=== PATIENT | male | born 1960 | race American Indian/Alaskan Native ===

== ENCOUNTER 2023-02-08 07:30 | Inpatient (IN) ==
[2023-02-01 20:53] LABS: Blood Urea Nitrogen 10 mg/dL (8-23); Calcium 8.9 mg/dL (8.6-10.4); Carbon Dioxide 25 mmol/L (22-30); Chloride 102 mmol/L (96-108); Glomerular Filtration Rate 108; Glucose 190 mg/dL (70-105)
[2023-02-01 20:58] LABS: Basophils # (Auto) 0.05 K/mcL (0.00-0.30); Basophils % (Auto) 0.6 % (0.0-2.0); Eosinophils # (Auto) 0.05 K/mcL (0.00-0.70); Eosinophils % (Auto) 0.6 % (0.0-7.0); Hematocrit 41.7 % (40.1-51.0); Lymphocytes # (Auto) 1.29 K/mcL (1.50-4.80); Lymphocytes % (Auto) 15.1 % (15.5-49.0); Mean Cell Volume 94.3 fL (80.0-100.0); Mean Corpuscular HGB Conc 33.6 g/dL (31.0-36.0); Monocytes % (Auto) 8.2 % (1.0-12.0); Platelet Count 279 K/mcL (140-440); RBC 4.42 M/mcL (4.63-6.08); Red Cell Distribution Width 13.6 % (11.5-14.5); WBC 8.5 K/mcL (4.5-11.0)
[2023-02-01 22:11] LABS: Estimated Average Glucose(eAG) 171 mg/dL; Hemoglobin A1C 7.6 % Hgb (4.0-6.0)
[~2023-02-08 07:30] MED LIST: ACETAMINOPHEN 500 MG TABLET PO SCH; CELECOXIB 200 MG CAPSULE PO SCH; IPRATROPIUM/ALBUTEROL 3 ML AMPUL.NEB NEB PRN; PREGABALIN 75 MG CAPSULE PO SCH; SCOPOLAMINE 1 PATCH PATCH TOPICAL PRN; ceFAZolin 2 GM in DEXTROSE 5% IN WATER 50 ML IV SCH; oxyCODONE 10 MG TAB.ER.12H PO SCH
[2023-02-08] MEDS ORDERED: KETAMINE 50 MG/ML Syringe (ANEST) IV ONE (09:33)
[2023-02-08] MEDS ORDERED: fentaNYL 100 MCG/2 ML VIAL IV ONE (09:33)
[2023-02-08] MEDS ORDERED: MAGNESIUM SULFATE 2 GM/50 ML BAG IV ONE (09:33)
[2023-02-08] MEDS ORDERED: ONDANSETRON 4 MG/2 ML VIAL ONE (09:33)
[2023-02-08] MEDS ORDERED: SUCCINYLCHOLINE 20 MG/ML ML IV ONE (09:33)
[2023-02-08] MEDS ORDERED: SUGAMMADEX SODIUM 200 MG/2 ML VIAL IV ONE (09:33)
[2023-02-08] MEDS ORDERED: ROCURONIUM 10 MG/ML ML IV ONE (09:33)
[2023-02-08] MEDS ORDERED: LIDOCAINE HCL/PF 100 MG/5 ML SYRINGE IV ONE (09:33)
[2023-02-08] MEDS ORDERED: GLYCOPYRROLATE 0.2 MG/ML VIAL IV ONE (09:33)
[2023-02-08] MEDS ORDERED: HYDROmorphone 1 MG/ML SYRINGE ONE (09:33)
[2023-02-08] MEDS ORDERED: MIDAZOLAM 2 MG/2 ML VIAL ONE (09:33)
[2023-02-08] MEDS ORDERED: TRANEXAMIC ACID 1,000 MG/10 ML VIAL ONE (09:33)
[2023-02-08] MEDS ORDERED: DEXAMETHASONE 10 MG/ML VIAL ONE (09:33)
[2023-02-08] MEDS ORDERED: PROPOFOL 200 MG/20 ML VIAL IV ONE (09:33)
[2023-02-08] MEDS ORDERED: TOBRAMYCIN SULFATE 1.2 GM VIAL TOPICAL ONE (10:20)
[2023-02-08] MEDS ORDERED: METOPROLOL TARTRATE 5 MG/5 ML VIAL IV PRN (10:27)
[2023-02-08] MEDS ORDERED: ONDANSETRON 4 MG/2 ML VIAL IV PRN (10:27)
[2023-02-08] MEDS ORDERED: NALOXONE HCL 0.4 MG/ML VIAL IV PRN (10:27)
[2023-02-08] MEDS ORDERED: HYDROmorphone 0.5 MG/0.5 ML SYRINGE IV PRN (10:27)
[2023-02-08] MEDS ORDERED: LACTATED RINGERS 250 ML IV PRN (10:27)
[2023-02-08] MEDS ORDERED: IPRATROPIUM/ALBUTEROL 3 ML AMPUL.NEB NEB PRN (10:27)
[2023-02-08] MEDS ORDERED: METHOCARBAMOL 1,000 MG/10 ML VIAL IV PRN (10:27)
[2023-02-08] MEDS ORDERED: FLUMAZENIL 0.1 MG/ML ML IV PRN (10:27)
[2023-02-08] MEDS ORDERED: LABETALOL 5 MG/ML ML IV PRN (10:27)
[2023-02-08] MEDS ORDERED: MEPERIDINE 25 MG/ML VIAL IV PRN (10:27)
[2023-02-08] MEDS ORDERED: LACTATED RINGERS 1,000 ML IV SCH (10:30)
[2023-02-08] MEDS ORDERED: ACETAMINOPHEN 325 MG TABLET PO PRN (10:44)
--- NOTE | 2023-02-08 10:44 | Brief Operative Note ---
Brief Operative Note Date of procedure: 02/08/23 Pre-op diagnosis: left shoulder infection Post-op diagnosis: same Procedure: left shoulder debridement extensive and wound closure Grafts/Implants: Yes Anesthesia: GETA Findings: abscess in muscle Complications: none Surgeon: Johnson Jj Spectrographic Analyst: Mike Andrew Estimated blood loss (cc): 56 Tourniquet Time (Minutes): 0 Specimens Removed/Pathology: none sent Condition: stable Disposition: PACU
--- NOTE | 2023-02-08 10:50 | Discharge Plan ---
Discharge Instructions - [facility] Patient Instructions Total Shoulder Protocol: Leave immobilizer in place except for bathing and ROM. Abduction pillow. Continue to wear sling until seen by physician. Codman Pendulum : These exercises use momentum produced by your body to move your shoulder joint. Bend your knees and shift your weight to your front leg, then back, allowing your arm to swing in the same directions. Using the same technique, alternately shift your weight between your right and left legs, allowing your arm to swing from side to side. These exercises are also performed in counterclockwise and clockwise circular motions. Typically these exercises are performed several times per day, for a set number repetitions or minutes, such as 20 times in a row or 5 minutes at a time. Discharge Plan Patient/Caregiver Discharge Instructions Diet: Regular Diet Prescriptions: New docusate sodium 100 mg capsule 100 mg PO BID Qty: 60 0RF oxycodone 10 mg tablet 10 mg PO Q4H PRN (Reason: pain) Qty: 75 0RF No Action amlodipine 10 mg tablet 10 mg PO QAM cholecalciferol (vitamin D3) 125 mcg (5,000 unit) capsule 125 mcg PO Q48H lisinopril 40 mg tablet 40 mg PO QDAY metoprolol tartrate 50 mg tablet 50 mg PO BID cyanocobalamin (vitamin B-12) 1,000 mcg tablet 1,000 mcg PO QDAY magnesium oxide 420 mg tablet 420 mg PO QDAY omeprazole 20 mg capsule,delayed release(DR/EC) 20 mg PO BIDAC polyethylene glycol 3350 17 gram Powder In Packet 17 g PO DAILYP PRN (Reason: Constipation) oxycodone 10 mg tablet 20 mg PO QID PRN (Reason: Pain) atorvastatin 80 mg Tablet 80 mg PO QAM sucralfate 1 gram Tablet 1 g PO QID Rx Instructions: Take before meals carboxymethylcellulose sodium 0.5 % Drops 1 drp OPHTHALMIC (EYE) QID PRN (Reason: Dry Eyes) metformin 1,000 mg Tablet 1,000 mg PO BID docusate sodium 250 mg Capsule 250 mg PO QDAY lidocaine 5 % Ointment 1 applic TOPICAL QID PRN (Reason: Pain) alogliptin 25 mg Tablet 25 mg PO QAM carboxymethylcellulose sodium 1 % Drops 1 drp OPHTHALMIC (EYE) QHS ipratropium-albuterol 20-100 mcg/actuation Mist 1 puff INHALATION Q6H Other Ambulatory Orders: Brace/Splint (ONCE) Location: None Selected Ordered By: Mike Andrew Physical Therapy DC - [facility] (Routine) Location: None Selected Ordered By: Mike Andrew Follow Up Plan Follow up with: Johnson Jj MD [Physician] - 02/21/23 8:40 am Mike Andrew PA-C [Physician Call Center Team Leader] - Patient Disposition: Home, Self-Care Prognosis: Good Rehab Potential: Good I certify that the patient requires SNF services: No Overall status at discharge: patient is progressing back to baseline Discharge Orders: Discharge Order (Routine); Ordered 02/09/23 Ordered By: Mike Andrew Discharge Comment: Pt does need acticoat 7 day silver dressing placed
[2023-02-08] MEDS: fentaNYL 100 MCG/2 ML VIAL IV PRN ×8 (11:13→11:43)
--- NOTE | 2023-02-08 12:19 | XRay Report ---
CLINICAL INFORMATION: [facility] COMPARISON: None. FINDINGS: Total shoulder arthroplasty shows anatomic alignment. The distal 1 cm of the clavicle is been resected. No other abnormalities. Soft tissues normal. IMPRESSION: Total shoulder prosthesis in anatomic position Interpreted and Authenticated by: Gonzalo Davey 02/08/23
[2023-02-08] MEDS: HYDROcodone/APAP 10/325MG TABLET PO PRN ×3 (13:22→21:47)
[2023-02-08] MEDS: HYDROmorphone 1 MG/ML SYRINGE IV PRN ×5 (13:30→21:48)
--- NOTE | 2023-02-08 14:39 | Operative Note ---
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 PROCEDURE: 1. Left shoulder debridement and irrigation with extensive debridement of an abscess wound down through the muscle layer. It did not penetrate into the joint and there was no drainage from the joint proper. 2. Left shoulder wound closure secondarily. SURGEON: Johnson Jj M.D. REAL ESTATE ACCOUNTANT: Mike Andrew PA-C. The assistance of the PA was required for the safe and efficient completion of the entire case. The expertise and technical skill of this provider was required throughout the case. The PA assisted with preoperative coordination, intraoperative retraction, wound closure, dressing and splint application, as well as postoperative documentation and care coordination. GRAFTS AND IMPLANTS: None. ANESTHESIA: General endotracheal anesthesia. FINDINGS: Abscess in the muscle. COMPLICATIONS: None. ESTIMATED BLOOD LOSS: 56 mL. TOURNIQUET TIME: No tourniquet. SPECIMENS: No specimens were sent. CONDITION: Stable. DISPOSITION: PACU. DESCRIPTION OF PROCEDURE: The patient was brought to the operating room, put in a beach chair position. The left arm was sterilely prepped and draped. Sheridan had been removed and he had a chronic middle-third wound draining area. The skin was excised centrally because of the draining wound. We dissected down through the fatty tissue and into the muscle. This seemed to penetrate the muscle layer. It did not penetrate through the fascial layer into the joint, however. Once we had washed this out, we took the arm through range of motion and manipulated without further expressing fluid out of the wound, confirming its non-communication with the joint. We aspirated the joint without significant fluid. Once we had confirmed this did not penetrate into the joint, we then thoroughly irrigated. We closed the fascial layer with #1 Stratafix. The skin was closed with Stratafix and adhesive closure. The patient tolerated this well. This was quite an extensive secondary wound closure secondary to wound dehiscence and infection. We irrigated thoroughly and had confirmed that preoperative antibiotics had been given. Sterile bandage was applied and a Donjoy sling was fitted and given to the patient at the end of the case. ABRAHAM:salena Job ID: [id number] Doc ID: [id number] Johnson Jj MD
[2023-02-08] MEDS ORDERED: VANCOMYCIN 1,000 MG in 0.9 % SODIUM CHLORIDE 250 ML IV ONE (16:14)
[2023-02-08] MEDS ORDERED: CARBOXYMETHYLCELLULOSE SODIUM 1 EACH DROPER.GEL OU PRN (16:24)
[2023-02-08] MEDS: OMEPRAZOLE 20 MG CAPSULE PO SCH (16:56)
[2023-02-08] MEDS: metFORMIN 500 MG TABLET PO SCH (16:56)
[2023-02-08] MEDS: SUCRALFATE 1 GM/10 ML ORAL.SUSP PO SCH (16:57)
[2023-02-08] MEDS ORDERED: VANCOMYCIN 1,500 MG in 0.9 % SODIUM CHLORIDE 500 ML IV ONE (17:00)
[2023-02-08] MEDS: IPRATROPIUM/ALBUTEROL 3 ML AMPUL.NEB NEB SCH (19:53)
[2023-02-08] MEDS: DOCUSATE SODIUM 100 MG CAPSULE PO SCH (20:11)
[2023-02-08] MEDS: METOPROLOL TARTRATE 25 MG TABLET PO SCH (20:13)
[2023-02-08] MEDS ORDERED: CARBOXYMETHYLCELLULOSE SODIUM 1 EACH DROPER.GEL OU SCH (21:00)
[2023-02-09] MEDS: SUCRALFATE 1 GM/10 ML ORAL.SUSP PO SCH ×3 (00:03→11:53)
[2023-02-09] MEDS: HYDROmorphone 1 MG/ML SYRINGE IV PRN ×7 (00:03→13:29)
[2023-02-09] MEDS: IPRATROPIUM/ALBUTEROL 3 ML AMPUL.NEB NEB SCH ×2 (01:30→07:47)
[2023-02-09] MEDS: HYDROcodone/APAP 10/325MG TABLET PO PRN ×3 (02:05→10:41)
[2023-02-09] MEDS: metFORMIN 500 MG TABLET PO SCH (08:10)
[2023-02-09] MEDS: OMEPRAZOLE 20 MG CAPSULE PO SCH (08:11)
[2023-02-09] MEDS: METOPROLOL TARTRATE 25 MG TABLET PO SCH (08:11)
[2023-02-09] MEDS: DOCUSATE SODIUM 100 MG CAPSULE PO SCH (08:11)
[2023-02-09] MEDS ORDERED: VANCOMYCIN 2,000 MG in 0.9 % SODIUM CHLORIDE 500 ML IV ONE (11:00)
== END 2023-02-09 13:28 | disposition home or self-care (01) | DRG 857 ==
LOC: MEDSUR 07:35
PROVIDERS: ADMIT Orthopaedic Surgery; ATTEND Physician Assistant Medical

== ENCOUNTER 2024-06-15 06:30 | Inpatient (IN) ==
[2024-06-12 14:12] LABS: Basophils # (Auto) 0.02 K/mcL (0.00-0.30); Basophils % (Auto) 0.3 % (0.0-2.0); Eosinophils # (Auto) 0.11 K/mcL (0.00-0.70); Eosinophils % (Auto) 1.5 % (0.0-7.0); Hematocrit 46.3 % (40.1-51.0); Hemoglobin 15.7 g/dL (13.7-17.5); Lymphocytes # (Auto) 1.18 K/mcL (1.50-4.80); Lymphocytes % (Auto) 15.7 % (15.5-49.0); Mean Cell Volume 96.3 fL (80.0-100.0); Mean Corpuscular HGB Conc 33.9 g/dL (31.0-36.0); Monocytes # (Auto) 0.57 K/mcL (0.10-0.90); Monocytes % (Auto) 7.6 % (1.0-12.0); Neutrophils % (Auto) 74.6 % (38.0-78.0); Platelet Count 274 K/mcL (140-440); RBC 4.81 M/mcL (4.63-6.08); Red Cell Distribution Width 11.9 % (11.5-14.5); WBC 7.5 K/mcL (4.5-11.0)
[2024-06-12 14:23] LABS: INR 0.9 (0.9-1.1); Prothrombin Time 12.8 sec (11.9-14.5)
[2024-06-12 14:47] LABS: ALT/SGPT 16 U/L (<40); AST/SGOT 25 U/L (<40); Albumin 4.4 gm/dL (3.2-5.2); Albumin/Globulin Ratio 1.5 (1.0-2.3); Alkaline Phosphatase 126 U/L (39-117); Bilirubin,Total 0.4 mg/dL (0.1-1.0); Blood Urea Nitrogen 14 mg/dL (8-23); Calcium 9.8 mg/dL (8.6-10.4); Carbon Dioxide 24 mmol/L (22-30); Chloride 100 mmol/L (96-108); Globulin 2.9 gm/dL (2.2-3.7); Glomerular Filtration Rate 115; Glucose 201 mg/dL (70-105); Potassium 4.4 mmol/L (3.3-5.1); Sodium 136 mmol/L (133-145)
[2024-06-12 15:59] LABS: Estimated Average Glucose(eAG) 186 mg/dL; Hemoglobin A1C 8.1 % Hgb (4.0-6.0)
[~2024-06-15 06:30] MED LIST changes: -ACETAMINOPHEN 500 MG TABLET PO SCH; -CELECOXIB 200 MG CAPSULE PO SCH; +PREGABALIN 25 MG CAPSULE PO SCH; -PREGABALIN 75 MG CAPSULE PO SCH; -ceFAZolin 2 GM in DEXTROSE 5% IN WATER 50 ML IV SCH; -oxyCODONE 10 MG TAB.ER.12H PO SCH
[2024-06-15] MEDS: ACETAMINOPHEN 500 MG TABLET PO SCH (07:00)
[2024-06-15] MEDS: oxyCODONE 10 MG TAB.ER.12H PO SCH (07:01)
[2024-06-15] MEDS: CELECOXIB 200 MG CAPSULE PO SCH (07:01)
[2024-06-15] MEDS ORDERED: LIDOCAINE 2% PF 5 ML VIAL ONE ×2 (07:29→08:00)
[2024-06-15] MEDS ORDERED: ONDANSETRON 4 MG/2 ML VIAL ONE (07:29)
[2024-06-15] MEDS ORDERED: DEXAMETHASONE 10 MG/ML VIAL ONE (07:29)
[2024-06-15] MEDS ORDERED: GLYCOPYRROLATE 0.2 MG/ML VIAL IV ONE (07:29)
[2024-06-15] MEDS ORDERED: ROPIVACAINE HCL/PF 30 ML VIAL IJ ONE (07:29)
[2024-06-15] MEDS ORDERED: PHENYLephrine 1 MG/10 ML SYRINGE (ANEST) ONE (07:29)
[2024-06-15] MEDS ORDERED: MAGNESIUM SULFATE 2 GM/50 ML BAG IV ONE (07:38)
[2024-06-15] MEDS ORDERED: PROPOFOL 200 MG/20 ML VIAL IV ONE ×2 (07:38→09:04)
[2024-06-15] MEDS ORDERED: ROCURONIUM 10 MG/ML ML IV ONE (07:41)
[2024-06-15] MEDS ORDERED: TRANEXAMIC ACID 1,000 MG/10 ML VIAL ONE (07:41)
[2024-06-15] MEDS ORDERED: MIDAZOLAM 2 MG/2 ML VIAL ONE (07:43)
[2024-06-15] MEDS ORDERED: KETAMINE 50 MG/ML Syringe IV ONE ×2 (07:44→09:05)
[2024-06-15] MEDS ORDERED: SUCCINYLCHOLINE 200 MG/10 ML VIAL IV ONE (08:25)
[2024-06-15] MEDS ORDERED: fentaNYL 100 MCG/2 ML VIAL ONE ×2 (08:33→08:43)
[2024-06-15] MEDS ORDERED: SUGAMMADEX SODIUM 200 MG/2 ML VIAL IV ONE (08:45)
[2024-06-15] MEDS ORDERED: HYDROmorphone 0.5 MG/0.5 ML SYRINGE ONE ×2 (09:04→09:33)
[2024-06-15] MEDS ORDERED: ONDANSETRON 4 MG/2 ML VIAL IV PRN (09:07)
[2024-06-15] MEDS ORDERED: IPRATROPIUM/ALBUTEROL 3 ML AMPUL.NEB NEB PRN (09:07)
[2024-06-15] MEDS ORDERED: DROPERIDOL 5 MG/2 ML VIAL IV PRN (09:07)
[2024-06-15] MEDS ORDERED: LACTATED RINGERS 250 ML IV PRN (09:07)
[2024-06-15] MEDS ORDERED: BENZOCAINE/MENTHOL 1 LOZENGE PO PRN (09:07)
[2024-06-15] MEDS ORDERED: NALOXONE HCL 0.4 MG/ML VIAL IV PRN (09:07)
[2024-06-15] MEDS ORDERED: FLUMAZENIL 0.1 MG/ML ML IV PRN (09:07)
[2024-06-15] MEDS: ceFAZolin 2 GM in DEXTROSE 5% IN WATER 50 ML IV SCH (09:30)
[2024-06-15] MEDS: VANCOMYCIN 1 GM VIAL TOPICAL SCH (09:50)
[2024-06-15] MEDS: METHOCARBAMOL 1,000 MG/10 ML VIAL IV PRN (10:08)
[2024-06-15] MEDS: fentaNYL 100 MCG/2 ML VIAL IV PRN (10:15)
[2024-06-15] MEDS: HYDROmorphone 0.5 MG/0.5 ML SYRINGE IV PRN (10:32)
[2024-06-15] MEDS ORDERED: ACETAMINOPHEN 325 MG TABLET PO PRN (11:12)
[2024-06-15] MEDS ORDERED: VANCOMYCIN PER PHARMACY IV SCH (11:17)
[2024-06-15] MEDS ORDERED: 0.9 % SODIUM CHLORIDE 10 ML SYRINGE IV PRN (11:18)
[2024-06-15] MEDS: KETOROLAC 15 MG/ML VIAL IV PRN (11:25)
[2024-06-15] MEDS: HYDROmorphone 1 MG/ML SYRINGE IV PRN (11:26)
[2024-06-15] MEDS: LACTATED RINGERS 1,000 ML IV SCH (11:51)
[2024-06-15] MEDS: TRANEXAMIC ACID 1,000 MG/10 ML VIAL IV ONE (12:09)
[2024-06-15] MEDS: VANCOMYCIN 1,500 MG in 0.9 % SODIUM CHLORIDE 500 ML IV SCH (12:10)
[2024-06-15] MEDS: HYDROcodone/APAP 10/325MG TABLET PO PRN (12:10)
[2024-06-15] MEDS ORDERED: LIDOCAINE 1% 10 ML VIAL SQ ONE (14:19)
[2024-06-15] MEDS ORDERED: SODIUM CHLORIDE IRRIG SOLUTION 250 ML BOTTLE IRR ONE (14:19)
[2024-06-15] MEDS: ceFAZolin 1 GM VIAL IV SCH (17:25)
[2024-06-15] MEDS ORDERED: METHOCARBAMOL 750 MG TABLET PO PRN (18:34)
[2024-06-15] MEDS: 0.9 % SODIUM CHLORIDE 10 ML SYRINGE IV SCH (20:53)
== END 2024-06-16 06:49 | disposition left against medical advice (07) | DRG 483 ==
LOC: MEDSUR 06:30 → EDSTATUS 15:40
PROVIDERS: ADMIT Orthopaedic Surgery; ATTEND Orthopaedic Surgery